=== PATIENT | male | born 2000 | race African-American/Black ===

== ENCOUNTER 2021-11-22 21:42 | Emergency (ER) | payer SELFPAY ==
[~2021-11-22] VITALS: Ht 172.7 cm; Wt 52.2 kg
[2021-11-22 22:10] VITALS: BP 137/67
--- NOTE | 2021-11-22 22:10 | NUR ---
BIBS THIS 21YO MALE PATIENT, AMBULATORY, ALERT, ORIENTED X4. PATIENT CC NUMBNESS OF RIGHT SIDE OF FACE AND NECK AND FELT THAT LEFT EYE BLINKS MORE THAN THE RIGHT. STROKE ASSESSMENT DONE
--- NOTE | 2021-11-22 22:20 | NUR ---
URINE SAMPLE SENT TO LAB
--- NOTE | 2021-11-22 22:47 | NUR ---
SEEN BY DR LORENZO AT BEDSIDE.
[2021-11-22] MEDS ORDERED: PRED20TA PO (23:00)
[2021-11-22] MEDS ORDERED: VALA100026 PO (23:00)
[2021-11-22] MEDS ORDERED: VALACYCLOVIR HCL 500 MG TABLET PO ONE (23:00)
[2021-11-22] MEDS ORDERED: predniSONE 50 MG TABLET PO ONE (23:00)
[2021-11-22] MEDS ORDERED: predniSONE 20 MG TABLET ONE (23:01)
[2021-11-22] MEDS ORDERED: DEXT15DR6 EACHEYE (23:02)
[2021-11-22] MEDS ORDERED: VALACYCLOVIR HCL 500 MG TABLET ONE (23:02)
--- NOTE | 2021-11-22 23:06 | NUR ---
MEDS GIVEN PO
--- NOTE | 2021-11-22 23:18 | NUR ---
Patient discharged to home in stable condition. Written and verbal after care instructions given. Patient verbalizes understanding of instruction.
== END 2021-11-22 23:20 | disposition home or self-care (01) ==
LOC: ER 21:45
DX: G51.0 Bell's palsy (principal); J45.909 Unspecified asthma, uncomplicated; Z88.0 Allergy status to penicillin; Z79.899 Other long term (current) drug therapy
CPT/HCPCS: 99283; J7512